=== PATIENT | female | born 1965 | race Caucasian/White ===

== ENCOUNTER 2016-10-22 15:14 | Observation (INO) | payer OTHER ==
[2016-10-22 15:28] VITALS: O2SAT 98
[2016-10-22] MEDS ORDERED: Sodium Chloride 0.9% 1,000 ML IV ONE (15:45)
--- NOTE | 2016-10-22 15:45 | C.PDOC ---
History Of Present Illness Patient is a 51 year old female who presents to the ER with a complaint of new onset constant right flank pain for the past 4 days; associated with dysuria. Patient states the pain occasionally radiates to the RUQ; however, there is no pain associated with movement. Patient notes having a SHx of tubal ligation. Denies prior Hx of renal colic, worsening symptoms with eating, fever, nausea, vomiting or diarrhea. new onset r FLANK PAIN X 4 DAYS. CONSTANT OCC RADIATION RUQ. NO ASSOC W MOVEMENT. DENIES PRIOR HO RENAL COLIC. NO ASSOC W EATING. +DYSURIA. NO FEVER, NVD. PSH TUBAL LIGATION EXAM MOD DIST NONTOXIC +R CVAT PAIN W ROM MILD RUQ TEND SOFT NO R/G REMAINDER NEG Time Seen by Provider: 10/22/16 15:36 Chief Complaint (Nursing): Back Pain History Per: Patient History/Exam Limitations: no limitations Onset/Duration Of Symptoms: Days (4) Current Symptoms Are (Timing): Still Present Recent travel outside of the [place] States: No Past Medical History Reviewed: Historical Data, Nursing Documentation, Vital Signs Vital Signs: Last Vital Signs Temp 98.2 F 10/22/16 15:26 Pulse 84 10/22/16 15:26 Resp 20 10/22/16 15:26 BP 168/84 H 10/22/16 15:26 Pulse Ox 98 10/22/16 16:47 - Medical History PMH: Migraine Other Surgeries: Tubal ligation - [facility] Procedures OTHER ENDOSCOPY OF SM INTEST (10/14/14) Family History: States: Unknown Family Hx - Social History Hx Tobacco Use: No Hx Alcohol Use: No Hx Substance Use: No - Immunization History Hx Tetanus Toxoid Vaccination: No Hx Influenza Vaccination: No Hx Pneumococcal Vaccination: No Review Of Systems Constitutional: Negative for: Fever, Chills Gastrointestinal: Positive for: Abdominal Pain (RUQ, radiating from right flank) . Negative for: Nausea, Vomiting, Diarrhea Genitourinary: Positive for: Dysuria Musculoskeletal: Positive for: Back Pain (Right flank) Physical Exam - Physical Exam Appears: Non-toxic, Other (Moderate distress) Skin: Normal Color, Warm, Dry Head: Atraumatic, Normacephalic Oral Mucosa: Moist Chest: Symmetrical, No Tenderness Cardiovascular: Rhythm Regular, No Murmur Respiratory: Normal Breath Sounds, No Accessory Muscle Use Gastrointestinal/Abdominal: Soft, Tenderness (Mild RUQ), No Guarding, No Rebound Back: CVA Tenderness (Right, w/ ROM) Neurological/Psych: Oriented x3, Normal Speech, Normal Cognition ED Course And Treatment - Laboratory Results Result Diagrams: 10/22/16 16:33 10/22/16 16:33 ECG: Interpreted By Me ECG Rhythm: Sinus Rhythm ECG Interpretation: Normal Rate From EC O2 Sat by Pulse Oximetry: 98 (Room air) Pulse Ox Interpretation: Normal Progress Note: CT abd/pel w/o contrast, EKG, blood work, CXR, abd US and urinalysis ordered. Toradol, morphine, zofran and IV fluids administered. ED OBSERVATION Discharge: Yes Date of observation admission: 10/22/16 Time of observation admission: 15:40 - Observation admission statement Patient is being placed in observation because:: FLANK, ABD PAIN - Goals of Observation Goals of observation are:: SX IMPROVE, NEG SURG ABD - Progress Note Progress Note: 10/22/16 17:[address], US, LABS NEG. VSS. Disposition Counseled Patient/Family Regarding: Studies Performed, Diagnosis, Need For Followup, Rx Given - Disposition Disposition: HOME/ ROUTINE Disposition Time: 17:28 Condition: IMPROVED - Clinical Impression Clinical Impression: Back pain - Scribe Statement The provider has reviewed the documentation as recorded by the Scribrafael Malhotra All medical record entries made by the Scribe were at my direction and personally dictated by me. I have reviewed the chart and agree that the record accurately reflects my personal performance of the history, physical exam, medical decision making, and the department course for this patient. I have also personally directed, reviewed, and agree with the discharge instructions and disposition.
--- NOTE | 2016-10-22 16:19 | US ---
HISTORY: RUQ abd pain COMPARISON: None. TECHNIQUE: Sonographic evaluation of the right upper quadrant of the abdomen. FINDINGS: LIVER: Measures 16.8 cm in length. Normal echogenicity of the liver parenchyma. No mass. No intrahepatic bile duct dilatation. GALLBLADDER: Unremarkable. No gallstones. COMMON BILE DUCT: Measures 3 mm. No stones. No dilatation. PANCREAS: Unremarkable as visualized. No mass. No ductal dilatation. RIGHT KIDNEY: Measures 10.5 cm in length. Normal echogenicity. No calculus, mass, or hydronephrosis. AORTA: No aneurysmal dilatation. IVC: Unremarkable. OTHER FINDINGS: None . IMPRESSION: No evidence of cholelithiasis or cholecystitis. Unremarkable examination.
[2016-10-22] MEDS ORDERED: Sodium Chloride 0.9% 1,000 ML ONE (16:34)
[2016-10-22 16:39] LABS: BASO # 0.1 K/uL (0.0-0.2); BASO % 0.9 % (0.0-2.0); EOS % 0.7 % (0.0-4.0); HEMATOCRIT 38.1 % (34.0-47.0); LYMPH # 2.2 K/uL (1.0-4.3); LYMPH % 32.7 % (20.0-40.0); MEAN CELL VOLUME 90.6 fL (81.0-99.0); MEAN CORPUSCULAR HEMOGLOBIN 29.7 pg (27.0-31.0); MEAN CORPUSCULAR HGB CONC 32.7 g/dL (33.0-37.0); MEAN PLATELET VOLUME 9.1 fL (7.2-11.7); MONO # 0.5 K/uL (0.0-0.8); MONO % 7.3 % (0.0-10.0); RED CELL DISTRIBUTION WIDTH 13.5 % (11.5-14.5); WHITE BLOOD COUNT 6.8 K/uL (4.8-10.8)
[2016-10-22 16:46] LABS: RBC URINE 1 /hpf (0-3); URINE BACTERIA RARE (<OCC); URINE BILIRUBIN NEGATIVE (NEGATIVE); URINE BLOOD NEGATIVE (NEGATIVE); URINE COLOR Straw (YELLOW); URINE GLUCOSE (UA) NORMAL (Normal); URINE KETONE NEGATIVE (NEGATIVE); URINE LEUKOCYTE ESTERASE NEG Leu/uL (Negative); URINE PROTEIN NEGATIVE (NEGATIVE); URINE UROBILINOGEN NORMAL mg/dL (0.2-1.0); WBC URINE < 1 /hpf (0-5)
--- NOTE | 2016-10-22 16:54 | CT ---
PROCEDURE: CT Abdomen and Pelvis without intravenous contrast HISTORY: R FLANK, RUQ PAIN COMPARISON: None. TECHNIQUE: Without contrast.. Contrast Dose: 0 Radiation dose: Total exam DLP = 759.53 mGy-cm. This CT exam was performed using one or more of the following dose reduction techniques: Automated exposure control, adjustment of the mA and/or kV according to patient size, and/or use of iterative reconstruction technique. FINDINGS: LOWER THORAX: Unremarkable. LIVER: Mild hepatomegaly. The liver measures 20.7 cm craniocaudal. It is normal in contour and attenuation. There is no mass or biliary dilatation. GALLBLADDER AND BILE DUCTS: Unremarkable. PANCREAS: Unremarkable. No gross lesion or ductal dilatation. SPLEEN: Unremarkable. ADRENALS: Unremarkable. No mass. KIDNEYS AND URETERS: Unremarkable. No hydronephrosis. No solid mass. No renal or ureteral calculus. VASCULATURE: Unremarkable. No aortic aneurysm. BOWEL: Unremarkable. No obstruction. No gross mural thickening. APPENDIX: Not identified. No secondary findings to suggest acute appendicitis peer PERITONEUM: Trace fluid in cul-de-sac. No generalized ascites. LYMPH NODES: Unremarkable. No enlarged lymph nodes. BLADDER: Poorly distended. Grossly normal. REPRODUCTIVE: Normal uterus. BONES: No acute fracture. OTHER FINDINGS: None. IMPRESSION: No evidence of urinary calculus or urinary tract obstruction. Mild hepatomegaly. Trace fluid in cul-de-sac, nonspecific. Otherwise unremarkable examination.
[2016-10-22 16:57] LABS: CHLORIDE 106 mmol/L (98-107); POTASSIUM 3.7 mmol/L (3.6-5.2); SODIUM 142 mmol/L (132-148)
[2016-10-22 17:00] LABS: ALB/GLOB RATIO 1.1 (1.0-2.1); ALKALINE PHOSPHATASE 76 U/L (38-126); ALT/SGPT 26 U/L (9-52); AST/SGOT 21 U/L (14-36); BILIRUBIN,TOTAL 0.6 mg/dL (0.2-1.3); BLOOD UREA NITROGEN 11 mg/dL (7-17); CALCIUM 9.7 mg/dl (8.6-10.4); CARBON DIOXIDE 25 mmol/L (22-30); GFR AFRICAN-AMERICAN > 60; GLUCOSE,RANDOM 101 mg/dL (65-105); TOTAL PROTEIN 7.7 g/dL (6.3-8.3)
--- NOTE | 2016-10-22 17:24 | RAD ---
PROCEDURE: CHEST RADIOGRAPH, 1 VIEW HISTORY: abd pain COMPARISON: 10/13/2014 FINDINGS: LUNGS: Clear. PLEURA: No pneumothorax or pleural fluid seen. CARDIOVASCULAR: Normal. OSSEOUS STRUCTURES: No significant abnormalities. VISUALIZED UPPER ABDOMEN: Normal. OTHER FINDINGS: None. IMPRESSION: No active disease.
[2016-10-22] MEDS ORDERED: Lidocaine 5% Patch TD STA (17:27)
[2016-10-22 18:45] VITALS: BP 148/75; PULSE 78; RESP 18; TEMP 98
== END 2016-10-22 17:28 | disposition home or self-care (01) ==
LOC: C.ER 15:14 → C.9OBSV 15:45
PROVIDERS: ADMIT Emergency Medicine; ATTEND Emergency Medicine
DX: R10.11 Right upper quadrant pain (principal)
CPT/HCPCS: 36415; 71010; 74176; 76705; 80053; 81001; 83690; 84703; 85025; 87086; 96374; 99282; G0378; J1885; J2270; J2405; J7040

== ENCOUNTER 2017-01-29 15:52 | Emergency (ER) | payer SELFPAY ==
[2017-01-29 16:13] VITALS: TEMP 98.2; O2SAT 98
--- NOTE | 2017-01-29 16:35 | C.PDOC ---
History Of Present Illness 52 yo female come in for evaluation of B/L knees pain gradually worsen. Pt reports, pain is localized over knees and worse with ambulation. Pt admits, similar sx in past. Otherwise, pt denies fever, chills, known trauma or injury, denies swelling, redness over knees, denies weakness, deformity, sensory or vascular deficits to B/L LEs. Ambulate to Ed for evaluation, appears in pain. Time Seen by Provider: 01/29/17 16:08 Chief Complaint (Nursing): Lower Extremity Problem/Injury History Per: Patient History/Exam Limitations: no limitations Onset/Duration Of Symptoms: Gradual Past Medical History Reviewed: Historical Data, Nursing Documentation, Vital Signs Vital Signs: Last Vital Signs Temp 98.2 F 01/29/17 15:57 Pulse 79 01/29/17 17:09 Resp 18 01/29/17 17:09 BP 124/72 01/29/17 17:09 Pulse Ox 98 01/29/17 18:37 - Medical History PMH: Migraine Other PMH: obesity - [facility] Procedures OTHER ENDOSCOPY OF SM INTEST (10/14/14) Family History: States: No Known Family Hx - Social History Hx Tobacco Use: No Hx Alcohol Use: No Hx Substance Use: No - Immunization History Hx Tetanus Toxoid Vaccination: No Hx Influenza Vaccination: No Hx Pneumococcal Vaccination: No Review Of Systems Except As Marked, All Systems Reviewed And Found Negative. Constitutional: Negative for: Fever, Chills Musculoskeletal: Positive for: Other ((+) Bilateral knee pain.) Neurological: Negative for: Weakness, Numbness Physical Exam - Physical Exam Appears: Well, Non-toxic, No Acute Distress Skin: Normal Color, Warm, No Rash, No Ecchymosis Head: Atraumatic, Normacephalic Extremity: Normal ROM (mild discomfort to R>L knees flexion), Tenderness (R>L over anterior aspect knees. No edmea, no palpable deformity, no erythema.), No Pedal Edema, No Calf Tenderness (B/L LEs), No Deformity, No Swelling Neurological/Psych: Oriented x3, Normal Speech, Normal Motor, Normal Sensation, Normal Reflexes ED Course And Treatment O2 Sat by Pulse Oximetry: 98 (RA) Pulse Ox Interpretation: Normal - Other Rad X-Ray - Bilateral Knees X-Ray: Viewed By Me, Read By Radiologist Interpretation: PROCEDURE: Bilateral Knee Radiographs. HISTORY: pain. COMPARISON: None. FINDINGS: BONES: No evidence of acute displaced fracture nor dislocation. The osseous structures appear intact. JOINTS: Right Knee: There appears be mild mild medial joint space narrowing. Small marginal osteophyte formation seen arising from the lateral tibial plateau. . Small anterior superior patella enthesophyte noted. Left knee: Joint spaces relatively preserved. . Small anterior superior patella enthesophyte noted. . SOFT TISSUES: Right Knee: Normal. Left Knee: Normal. JOINT EFFUSION: Right Knee: Suspect trace suprapatellar joint effusion. . Left Knee: Suspect trace suprapatellar joint effusion. OTHER FINDINGS: None. IMPRESSION: No acute fractures. Minor DJD as described. Suspect trace suprapatellar joint effusions bilaterally. Progress Note: On re-eavluation, pt is afebrile, hemodynamicaly stable. Non- toxic. Ambulatory in ED with stable gait. B/L knees: exam c/w knee arthralgia. no edema, no cellulitis. FAROM, no neurovascular deficits, no calf tenderness. Imaging review and c/w B/L knees DJD. Shay warp applied to B/L knees. Pt advised and ref. to F/u with Ortho in 2-3 days for re-eavl. return to ED if any worsening or new changes. Medical Decision Making Medical Decision Making: PLAN: * X-Ray - Bilateral Knees * Tramadol PO * Prednisone PO Disposition Counseled Patient/Family Regarding: Studies Performed, Diagnosis, Need For Followup, Rx Given - Disposition Referrals: [facility] [Outside] [facility] [place] [Outside] Disposition: HOME/ ROUTINE Disposition Time: 16:51 Condition: STABLE Additional Instructions: SHAY WRAP TO B/L KNEES FOR SUPPORT TAKE MEDICATION PRESCRIBED FOR PAIN FOLLOW UP WI ORTHOPEDIST IN 2-3 DAYS FOR RE-EVALUATION. RETURN TO ED IF ANY WORSENING OR NEW CHANGES. Prescriptions: Prednisone [Deltasone] 40 mg PO DAILY #6 tablet traMADol [Ultram] 50 mg PO TID #7 tab Instructions: Knee Pain (ED), Arthralgia (ED) Forms: [employer] (Senegalese), Work Excuse Print Language: GIBRALTARIAN - Clinical Impression Clinical Impression: Arthritis of knee - PA / URGENT CARE PHYSICIAN / Resident Statement MD/DO has reviewed & agrees with the documentation as recorded. - Scribe Statement The provider has reviewed the documentation as recorded by the Olegibe Stacie Inman All medical record entries made by the William were at my direction and personally dictated by me. I have reviewed the chart and agree that the record accurately reflects my personal performance of the history, physical exam, medical decision making, and the department course for this patient. I have also personally directed, reviewed, and agree with the discharge instructions and disposition.
[2017-01-29 17:10] VITALS: BP 124/72; PULSE 79; RESP 18
--- NOTE | 2017-01-29 17:13 | RAD ---
PROCEDURE: Bilateral Knee Radiographs. HISTORY: pain COMPARISON: None. FINDINGS: BONES: No evidence of acute displaced fracture nor dislocation. The osseous structures appear intact. JOINTS: Right Knee: There appears be mild mild medial joint space narrowing. Small marginal osteophyte formation seen arising from the lateral tibial plateau. . Small anterior superior patella enthesophyte noted Left knee: Joint spaces relatively preserved. . Small anterior superior patella enthesophyte noted. . SOFT TISSUES: Right Knee: Normal. Left Knee: Normal. JOINT EFFUSION: Right Knee: Suspect trace suprapatellar joint effusion. . Left Knee: Suspect trace suprapatellar joint effusion. OTHER FINDINGS: None. IMPRESSION: No acute fractures. Minor DJD as described. Suspect trace suprapatellar joint effusions bilaterally.
== END 2017-01-29 17:11 | disposition home or self-care (01) ==
LOC: C.ER 15:52
DX: M13.862 Other specified arthritis, left knee (principal); M13.861 Other specified arthritis, right knee

== ENCOUNTER 2017-08-31 10:27 | Emergency (ER) | payer OTHER ==
[2017-08-31 10:27] VITALS: BMI 34.5
[2017-08-31 10:34] VITALS: BP 143/78; PULSE 104; RESP 20; TEMP 99.7; O2SAT 95
--- NOTE | 2017-08-31 10:51 | C.PDOC ---
History Of Present Illness 52 year old female presents to the ED c/o sore throat, myalgia and subjective fever for the past 1 week. Patient denies nausea, vomit, diarrhea, rash, recent travel, sick contacts. SORE THROAT, MYALGIA X 1 WEEK. SUBJ FEVER EXAM NONTOXIC NARD HEENT +PHARNGITIS W EXUDATE, SWELL. UVULA MIDLINE, NO STRIDOR OR DROOL SUPPLE REMAINDER NEG Time Seen by Provider: 08/31/17 10:44 Chief Complaint (Nursing): ENT Problem History Per: Patient History/Exam Limitations: no limitations Onset/Duration Of Symptoms: Days (week ) Current Symptoms Are (Timing): Still Present Location Of Pain: Throat Sick Contacts (Context): None Associated Symptoms: Fever (subjective), Sore Throat, Myalgias Ear Symptoms: Bilateral: None Recent travel outside of the [place]: No Additional History Per: Patient Past Medical History Reviewed: Historical Data, Nursing Documentation, Vital Signs Vital Signs: Last Vital Signs Temp 99.7 F H 08/31/17 10:33 Pulse 104 H 08/31/17 10:33 Resp 20 08/31/17 10:33 BP 143/78 08/31/17 10:33 Pulse Ox 95 08/31/17 10:53 - Medical History PMH: Migraine Denies: HTN, Hypercholesterolemia, Chronic Kidney Disease Surgical History: No Surg Hx - [facility] Procedures OTHER ENDOSCOPY OF SM INTEST (10/14/14) Family History: States: Unknown Family Hx - Social History Hx Tobacco Use: No Hx Alcohol Use: No Hx Substance Use: No - Immunization History Hx Tetanus Toxoid Vaccination: No Hx Influenza Vaccination: No Hx Pneumococcal Vaccination: No Review Of Systems Constitutional: Positive for: Fever, Malaise. Negative for: Chills ENT: Positive for: Throat Pain. Negative for: Nose Discharge, Nose Congestion, Throat Swelling Respiratory: Negative for: Cough, Shortness of Breath Gastrointestinal: Negative for: Nausea, Vomiting, Abdominal Pain Skin: Negative for: Rash Physical Exam - Physical Exam Appears: Non-toxic, No Acute Distress Skin: Normal Color, Warm, Dry Head: Atraumatic, Normacephalic Eye(s): bilateral: Normal Inspection Ear(s): Bilateral: Normal Nose: No Discharge Oral Mucosa: Moist Throat: Erythema (Pharingitis), Exudate, No Drooling, Other (swelling. Uvula is midline. No stridor) Neck: Normal ROM, Supple Chest: Symmetrical Cardiovascular: Rhythm Regular, No Murmur Respiratory: Normal Breath Sounds, No Rales, No Rhonchi, No Wheezing, Other ( NARD) Extremity: Normal ROM, No Tenderness, No Swelling Neurological/Psych: Oriented x3, Normal Speech Gait: Steady ED Course And Treatment O2 Sat by Pulse Oximetry: 95 (ON RA) Pulse Ox Interpretation: Normal Medical Decision Making Medical Decision Making: Plan: * Motrin 600 mg PO Disposition Counseled Patient/Family Regarding: Diagnosis, Need For Followup, Rx Given - Disposition Referrals: [facility] [Outside] [facility] [Outside] Disposition: HOME/ ROUTINE Disposition Time: 10:49 Condition: IMPROVED Prescriptions: Amoxicillin [Amoxil 500 mg Cap] 500 mg PO BID #20 cap Dexamethasone 12 mg PO ONCE #2 tablet Ibuprofen [Motrin] 600 mg PO Q6 #30 tab Instructions: Strep Throat (DC) Forms: [facility] (Mongolian), Work Excuse Print Language: MOZAMBICAN - Clinical Impression Clinical Impression: Pharyngitis - Scribe Statement The provider has reviewed the documentation as recorded by the Scribe En Parish All medical record entries made by the Scribe were at my direction and personally dictated by me. I have reviewed the chart and agree that the record accurately reflects my personal performance of the history, physical exam, medical decision making, and the department course for this patient. I have also personally directed, reviewed, and agree with the discharge instructions and disposition.
== END 2017-08-31 11:09 | disposition home or self-care (01) ==
LOC: C.ER 10:27
DX: J02.9 Acute pharyngitis, unspecified (principal)

== ENCOUNTER 2018-06-02 23:27 | Emergency (ER) | payer SELFPAY ==
[2018-06-02 23:27] VITALS: BMI 34.5
[2018-06-02 23:32] VITALS: O2SAT 98
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
[2018-06-02 23:58] VITALS: BP 136/79; PULSE 68; RESP 18; TEMP 98
== END 2018-06-03 00:01 | disposition home or self-care (01) ==
LOC: C.ER 23:27
DX: S40.012A Contusion of left shoulder, initial encounter (principal); Y09 Assault by unspecified means